=== PATIENT | female | born 1940 | race Caucasian/White ===

== ENCOUNTER → 2021-10-15 | Day surgery (SDC) | payer OTHER ==
[2021-10-15] VITALS (7 sets, daily range): BP systolic 90–119; BP diastolic 46–54
[~2021-10-15] VITALS: Ht 154.9 cm; Wt 67.1 kg
[~2021-10-15] MED LIST: ANGIOMAX 250 MG VIAL IV ONE; ASPI1TAB19 PO; CARV3.1240 PO; CLOP75TA70 PO; CYAN1TAB18 PO; FOLI800T16 PO; FURO20TA3 PO; HEPARIN SODIUM (PORCINE) 5000 UNITS/ML 1ML VIAL ONE; IODIXANOL 320MG/ML 100ML BTL IV ONE; LACT1CAP14 PO; LIDOCAINE 2%HCL (LOCAL ANESTH.) INJ 20ML MDV ONE; LOSA-69 PO; MIDAZOLAM HCL 2MG/2ML 2ml VIAL (1mg/ml) ONE; POTA10TA51 PO; RANO500T2 PO; SODIUM CHL 0.9% 0 ML ONE; VERAPAMIL 2.5MG/ML INJ 2ML VIAL IV ONE; fentaNYL CITRATE 100 MCG/2 ML VL ONE
== END | disposition home or self-care (01) ==
LOC: CATH 06:58
PROVIDERS: ATTEND Internal Medicine Cardiovascular Disease
DX: R94.39 Abnormal result of other cardiovascular function study (principal); I25.10 Atherosclerotic heart disease of native coronary artery without angina pectoris; I10 Essential (primary) hypertension; E78.5 Hyperlipidemia, unspecified; I44.7 Left bundle-branch block, unspecified; Z95.5 Presence of coronary angioplasty implant and graft; Z86.73 Personal history of transient ischemic attack (TIA), and cerebral infarction without residual deficits; Z87.891 Personal history of nicotine dependence; Z20.822 Contact with and (suspected) exposure to COVID-19
CPT/HCPCS: 93458; C1769; C1887; C1894; J1644; J2250; J3010; J7030; Q9967; U0003; 99152

== ENCOUNTER 2023-02-06 21:57 | Inpatient (IN) | payer OTHER ==
[~2023-02-06] VITALS: Ht 154.9 cm; Wt 66.6 kg
[~2023-02-06 21:57] MED LIST changes: -ANGIOMAX 250 MG VIAL IV ONE; -HEPARIN SODIUM (PORCINE) 5000 UNITS/ML 1ML VIAL ONE; -IODIXANOL 320MG/ML 100ML BTL IV ONE; -LIDOCAINE 2%HCL (LOCAL ANESTH.) INJ 20ML MDV ONE; -MIDAZOLAM HCL 2MG/2ML 2ml VIAL (1mg/ml) ONE; -SODIUM CHL 0.9% 0 ML ONE; -VERAPAMIL 2.5MG/ML INJ 2ML VIAL IV ONE; -fentaNYL CITRATE 100 MCG/2 ML VL ONE
[2023-02-06] MEDS ORDERED: MORPHINE SULFATE INJ 2 MG/ml SYRG IV PRN ×2 (23:30)
[2023-02-06] MEDS ORDERED: NITROGLYCERIN 0.4 MG SL TAB SL PRN ×2 (23:30)
[2023-02-06] MEDS ORDERED: IPRATROPIUM BROM 0.5 MG/2.5ML INH SOL NEB PRN (23:30)
[2023-02-06] MEDS ORDERED: ALBUTEROL SULF 2.5 MG/0.5ML(0.5%) NEB SOLN NEB PRN (23:30)
[2023-02-06] MEDS ORDERED: ONDANSETRON HCL 4 MG/2 ML VIAL IV PRN (23:30)
[2023-02-06] MEDS ORDERED: ACETAMINOPHEN 325 MG TAB PO PRN (23:30)
[2023-02-07 05:00] VITALS: BP 104/43
[2023-02-07 05:14] LABS: Red Cell Distribution Width 16.1 % (11.8-14.3)
[2023-02-07 05:16] LABS: Hemoglobin 12.2 g/dL (12.2-16.2); INR 1.03 (0.9-1.15); Mean Corpuscular Hemoglobin 33.6 pg (28.0-32.0); Mean Corpuscular Hgb Conc. 33.8 g/dL (32.0-36.0); Mean Corpuscular Volume 99.4 fL (80.0-100.0); Red Blood Cells 3.62 10^6/uL (4.0-5.20); White Blood Cell 11.6 10^3/uL (4.4-10.8)
[2023-02-07 05:26] LABS: BUN/Creatinine Ratio 30.6 (10.0-20.0); Calcium 8.1 mg/dL (8.5-10.1); Potassium 3.6 mmol/L (3.5-5.1)
[2023-02-07 06:02] LABS: Basophils % (manual) 0 (0.0-2.0); Blast Cells 0; Eosinophils % (manual) 0 (0-7); Metamyelocytes % 0; Myelocytes % 0; Promyelocytes % 0; Reactive Lymphocytes 0
[2023-02-07 08:30] VITALS: BP 95/50
[2023-02-07 09:34] LABS: Band Neutrophils % (manual) 6; Lymphocytes % (manual) 15 (10.0-50.0); Monocytes % (manual) 6 (0-12)
[2023-02-07] MEDS: ASPirin-EC 81 mg tab PO SCH (09:49)
[2023-02-07] MEDS ORDERED: FUROSEMIDE 40 MG/4 ML VIAL IV SCH (10:00)
[2023-02-07 12:04] VITALS: BP 95/50
[2023-02-07] MEDS: ENOXAPARIN SOD 80 MG/0.8ML SYRINGE SC SCH ×2 (12:18→21:19)
[2023-02-07 12:30] VITALS: BP 112/63
[2023-02-07 15:59] LABS: Cholesterol 210 mg/dL (< 200)
[2023-02-07 16:02] LABS: HDL Cholesterol 43 mg/dL (40-59); LDL Cholesterol 133 mg/dL (< 100); Triglycerides 219 mg/dL (< 150)
[2023-02-07] MEDS: FUROSEMIDE 20 MG/2 ML VIAL IV SCH (16:51)
[2023-02-07 17:03] VITALS: BP 122/72
[2023-02-07] MEDS: RANOLAZINE ER 500 MG TAB PO SCH (21:19)
[2023-02-07 22:00] VITALS: BP 110/64
[2023-02-08] VITALS (9 sets, daily range): BP systolic 80–127; BP diastolic 56–73
[2023-02-08 05:42] LABS: Basophils # (auto) 0 10 ^3/uL (0-0.2); Basophils % (auto) 0.2 % (0.0-2.0); Eosinophils # (auto) 0.1 10 ^3/uL (0-0.8); Eosinophils % (auto) 0.4 % (0.0-7.0); Hematocrit 35.3 % (36.0-46.0); Lymphocytes % (auto) 15.5 % (10.0-50.0); Mean Corpuscular Hemoglobin 33.9 pg (28.0-32.0); Mean Corpuscular Hgb Conc. 33.8 g/dL (32.0-36.0); Mean Corpuscular Volume 100.1 fL (80.0-100.0); Monocytes % (auto) 7.8 % (0.0-12.0); Neutrophils % (auto) 76.1 % (37.0-80.0); Nucleated Red Blood Cells % 0.2 %; Red Blood Cells 3.53 10^6/uL (4.0-5.20); Red Cell Distribution Width 16.3 % (11.8-14.3); White Blood Cell 13.2 10^3/uL (4.4-10.8)
[2023-02-08 05:57] LABS: INR 1.05 (0.9-1.15); Partial Thromboplastin Time 32.1 sec (24.6-33.4)
[2023-02-08 05:58] LABS: BUN/Creatinine Ratio 18.3 (10.0-20.0); Calcium 8.1 mg/dL (8.5-10.1); Potassium 3.6 mmol/L (3.5-5.1)
[2023-02-08 08:40] LABS: Urine Bacteria NONE SEEN /hpf (None Seen); Urine Blood Negative /uL (Negative); Urine Hyaline Cast FEW /lpf (0 - 2); Urine Mucus FEW (None Seen); Urine Specific Gravity 1.017 (1.001-1.035); Urine WBC 10 /hpf (0 - 5)
[2023-02-08] MEDS: ASPirin-EC 81 mg tab PO SCH (10:19)
[2023-02-08] MEDS: LOSARTAN POTASSIUM 25 MG TAB PO SCH (10:20)
[2023-02-08] MEDS: RANOLAZINE ER 500 MG TAB PO SCH ×2 (10:21→22:24)
[2023-02-08] MEDS: METOPROLOL SUCCINATE XL 50 MG TAB PO SCH (10:22)
[2023-02-08] MEDS: predniSONE 20 MG TAB PO SCH (10:23)
[2023-02-08] MEDS: FUROSEMIDE 20 MG/2 ML VIAL IV SCH (10:24)
[2023-02-08] MEDS: ENOXAPARIN SOD 80 MG/0.8ML SYRINGE SC SCH (10:25)
[2023-02-08] MEDS ORDERED: HEPARIN SODIUM (PORCINE) 5000 UNITS/ML 1ML VIAL ONE (15:09)
[2023-02-08] MEDS ORDERED: ANGIOMAX 250 MG VIAL IV ONE (15:09)
[2023-02-08] MEDS ORDERED: VERAPAMIL 2.5MG/ML INJ 2ML VIAL IV ONE (15:09)
[2023-02-08] MEDS ORDERED: SODIUM CHL 0.9% 0 ML ONE (15:10)
[2023-02-08] MEDS ORDERED: MIDAZOLAM HCL 2MG/2ML 2ml VIAL (1mg/ml) ONE (15:10)
[2023-02-08] MEDS ORDERED: LIDOCAINE 2%HCL (LOCAL ANESTH.) INJ 20ML MDV ONE (15:15)
[2023-02-08] MEDS ORDERED: fentaNYL CITRATE 100 MCG/2 ML VL ONE (15:16)
[2023-02-08] MEDS ORDERED: ASPirin 325 MG TAB PO ONE (16:30)
[2023-02-08] MEDS ORDERED: CLOPIDOGREL 300 MG TAB PO ONE (16:30)
[2023-02-08] MEDS ORDERED: ATORVASTATIN 20 MG TAB PO SCH (22:00)
[2023-02-09 05:00] VITALS: BP 90/51
[2023-02-09 06:15] LABS: Basophils # (auto) 0 10 ^3/uL (0-0.2); Basophils % (auto) 0.1 % (0.0-2.0); Eosinophils # (auto) 0 10 ^3/uL (0-0.8); Hematocrit 33.3 % (36.0-46.0); Hemoglobin 11.3 g/dL (12.2-16.2); Lymphocytes # (auto) 1.2 10 ^3/uL (0.4-5.4); Lymphocytes % (auto) 8.7 % (10.0-50.0); Mean Corpuscular Hemoglobin 33.5 pg (28.0-32.0); Mean Corpuscular Hgb Conc. 33.9 g/dL (32.0-36.0); Mean Corpuscular Volume 99.1 fL (80.0-100.0); Monocytes # (auto) 1.1 10 ^3/uL (0-1.3); Monocytes % (auto) 8.3 % (0.0-12.0); Neutrophils # (auto) 11.4 10 ^3/uL (1.6-8.6); Neutrophils % (auto) 82.9 % (37.0-80.0); Nucleated Red Blood Cells % 0.1 %; Red Blood Cells 3.37 10^6/uL (4.0-5.20); White Blood Cell 13.8 10^3/uL (4.4-10.8)
[2023-02-09 06:42] LABS: Potassium 3.5 mmol/L (3.5-5.1)
[2023-02-09 06:45] LABS: BUN/Creatinine Ratio 29.1 (10.0-20.0)
[2023-02-09 09:00] VITALS: BP 131/72
[2023-02-09] MEDS: ASPirin-EC 81 mg tab PO SCH (09:23)
[2023-02-09] MEDS: RANOLAZINE ER 500 MG TAB PO SCH (09:23)
[2023-02-09] MEDS: LOSARTAN POTASSIUM 25 MG TAB PO SCH (09:26)
[2023-02-09] MEDS: METOPROLOL SUCCINATE XL 50 MG TAB PO SCH (09:27)
[2023-02-09] MEDS: predniSONE 20 MG TAB PO SCH (09:28)
[2023-02-09] MEDS: FUROSEMIDE 20 MG/2 ML VIAL IV SCH (09:29)
[2023-02-09] MEDS ORDERED: CLOPIDOGREL BISULFATE 75 MG TAB PO SCH ×2 (10:00)
[2023-02-09] MEDS ORDERED: ISOSORBIDE MONONITRATE ER 60 MG TAB PO SCH (10:00)
[2023-02-09 13:00] VITALS: BP 103/63
[2023-02-09] MEDS ORDERED: ATOR20TA50 PO (13:57)
[2023-02-09] MEDS ORDERED: CLOP75TA70 PO (13:57)
[2023-02-09] MEDS ORDERED: CARV3.1240 PO (13:57)
[2023-02-09] MEDS ORDERED: RANO500T2 PO (13:57)
[2023-02-09] MEDS ORDERED: ASPI1TAB19 PO (13:57)
[2023-02-09] MEDS ORDERED: ISOS1TAB28 PO (13:58)
[2023-02-09 19:58] VITALS: BP 103/63
== END 2023-02-09 21:15 | disposition home or self-care (01) | DRG 280 ==
LOC: TELE-DOU 22:54 → TELE-EAST 23:55
PROVIDERS: ADMIT Internal Medicine; ATTEND Internal Medicine
PROC: 4A023N7 Measurement of Cardiac Sampling and Pressure, Left Heart, Percutaneous Approach (ICD-10-PCS; principal; 2023-02-08)
PROC: B211YZZ Fluoroscopy of Multiple Coronary Arteries using Other Contrast (ICD-10-PCS; 2023-02-08)
PROC: B215YZZ Fluoroscopy of Left Heart using Other Contrast (ICD-10-PCS; 2023-02-08)
DX: I21.4 Non-ST elevation (NSTEMI) myocardial infarction (principal); I50.23 Acute on chronic systolic (congestive) heart failure; I25.10 Atherosclerotic heart disease of native coronary artery without angina pectoris; D72.829 Elevated white blood cell count, unspecified; Z20.822 Contact with and (suspected) exposure to COVID-19; E11.9 Type 2 diabetes mellitus without complications; E66.3 Overweight; E78.5 Hyperlipidemia, unspecified; I11.0 Hypertensive heart disease with heart failure; Z79.02 Long term (current) use of antithrombotics/antiplatelets; Z86.73 Personal history of transient ischemic attack (TIA), and cerebral infarction without residual deficits
CPT/HCPCS: 36415; 71045; 80048; 80061; 81001; 83036; 83880; 84484; 85007; 85025; 85027; 85379; 85610; 85730; 86850; 86900; 86901; 93306; 93458; 93970; 94640; 99152; C1894; G0378; J2250